=== PATIENT | female | born 1990 | race Caucasian/White ===

== ENCOUNTER 2021-11-25 13:04 | Emergency (ER) | payer MEDICARE ==
[~2021-11-25] VITALS: Ht 162.6 cm; Wt 72.7 kg
[2021-11-25 13:09] VITALS: TEMP 98
[2021-11-25 13:40] LABS: BASO # 0.1 K/mm3 (0.0-0.2); BASO % 0.7 % (0.0-2.0); EOS # 0.2 K/mm3 (0.0-0.7); EOS % 1.7 % (0.0-4.0); GRAN # 7.5 K/mm3 (1.4-6.5); GRAN % 70.3 % (42.2-75.2); HEMATOCRIT 44.6 % (37.0-47.0); HEMOGLOBIN 15.1 g/dl (12.5-16.0); LYMPH # 2.4 K/mm3 (1.2-3.4); LYMPH % 21.9 % (20.0-51.0); MEAN CELL VOLUME 84 fl (80.0-100.0); MEAN CORPUSCULAR HEMOGLOBIN 28 pg (27-31); MEAN CORPUSCULAR HGB CONC 34 g/dl (33.0-37.0); MEAN PLATELET VOLUME 9.9 fl (7.4-10.4); MONO # 0.6 K/mm3 (0.1-0.6); MONO % 5.1 % (1.7-9.3); PLATELET COUNT 373 K/mm3 (130-400); RED BLOOD COUNT 5.31 M/mm3 (4.10-5.30)
[2021-11-25 13:52] LABS: TRICYCLIC ANTIDEPRESS URINE NEGATIVE
[2021-11-25 13:57] LABS: ALANINE AMINOTRANSFERASE 34 U/L (0-55); ALBUMIN 4.2 gm/dL (3.5-5.0); ALKALINE PHOSPHATASE 108 U/L (40-150); ANION GAP 12 mmol/L (7-16); AST,SGOT 18 U/L (5-34); BILIRUBIN,TOTAL 0.4 mg/dL (0.2-1.2); BLOOD UREA NITROGEN 9 mg/dL (7-19); CALCIUM 9.5 mg/dL (8.4-10.2); CARBON DIOXIDE 23 mmol/L (22-29); CHLORIDE 108 mmol/L (98-107); GLUCOSE 107 mg/dL (70-99); POTASSIUM 4.2 mmol/L (3.5-4.5); SODIUM 143 mmol/L (136-145); TOTAL PROTEIN 7.5 gm/dL (6.2-8.1)
[2021-11-25 13:58] LABS: ACETAMINOPHEN < 1.0 ug/mL (10-30); ALCOHOL(ethanol),MEDICAL < 10 mg/dL (0-10); SALICYLATE < 5.0 mg/dL (15.0-30.0)
--- NOTE | 2021-11-25 16:53 | NUR ---
river transportation worker contacted [facility] who advised that they did not have this patients 5 month old baby in their care. Phone call made to [facility]. Dispatched advises that when the EMS call came through they were notified of the child being left at home. Officers loacted the child and placed baby in police custody. CPS reports filed. [id number]
[2021-11-25 21:57] VITALS: BP 113/60; PULSE 58
== END 2021-11-25 22:00 ==
LOC: COL.ER 13:04
PROVIDERS: Personal Emergency Response Attendant
DX: T43.222A Poisoning by selective serotonin reuptake inhibitors, intentional self-harm, initial encounter (principal); T48.3X2A Poisoning by antitussives, intentional self-harm, initial encounter; Z20.822 Contact with and (suspected) exposure to COVID-19; Z28.310 Unvaccinated for COVID-19